=== PATIENT | female | born 1950 | race Caucasian/White ===

== ENCOUNTER 2019-02-06 07:46 | Day surgery (SDC) ==
[~2019-02-06 07:46] MED LIST: BRIMONIDINE TARTRATE 0.2% OPTH SOL OP PRN; BSS WITH EPINEPHRINE OP ONE; DEX-MOXI-KETOR OPTH INJ 1/0.5/0.4 MG/ML IO ONE; LIDOCAINE 1% 20 ML MDV ID STA; LIDOCAINE 1%/PHENYLEPHRINE 1.5% BSS (SURGERY) INTRAOCULA ONE; ZOFRAN 4 MG/2 ML IVP ONE
[2019-02-06] MEDS: BETADINE OPTH PREP OP PRN ×3 (08:45→10:05)
[2019-02-06] MEDS: TETRACAINE 0.5% UNIT-DOSE OP PRN ×3 (08:45→10:05)
[2019-02-06] MEDS: CYCLOGYL 2% OPTH OP PRN ×6 (08:45→10:15)
[2019-02-06] MEDS ORDERED: SUBLIMAZE ONE (09:36)
[2019-02-06] MEDS ORDERED: ZOFRAN 4 MG/2 ML ONE (09:36)
[2019-02-06 13:13] VITALS: TEMP 97.9
[2019-02-07 15:53] VITALS: BP 134/75
== END 2019-02-06 10:35 | disposition home or self-care (01) ==
LOC: SURG 07:46
PROVIDERS: ATTEND Ophthalmology
DX: H25.812 Combined forms of age-related cataract, left eye (principal)